=== PATIENT | male | born 1965 | race Caucasian/White ===

== ENCOUNTER 2016-10-24 07:17 | Emergency (ER) | payer BC ==
[~2016-10-24] VITALS: Ht 177.8 cm; Wt 77.3 kg
[~2016-10-24 07:17] MED LIST: CHONCAP PO; OMEGCAP2 PO; TAMS0.4C38 PO
[2016-10-24 07:20] VITALS: TEMP 36.9; Ht 177.8 cm; Wt 77.3 kg
[2016-10-24] MEDS ORDERED: SODIUM CHLORIDE 0.9% 1000ML 1,000 ML IV STA (07:33)
[2016-10-24] MEDS ORDERED: KETOROLAC TROMETHAMINE 30 MG/ML VIAL IV STA (07:33)
[2016-10-24 07:46] LABS: BASO % 0.2 %; BASO ABS # 0.01 K/uL (0-0.2); COMPLETE YES; EOS % 0.2 %; HEMATOCRIT 46.4 % (42-52); IG% 0.2 %; LYMPH % 8.8 %; LYMPH ABS # 0.57 K/uL (1.2-3.4); MEAN CELL VOLUME 90.6 fL (80-100); MEAN CORPUSCULAR HEMOGLOBIN 32.4 pg (25-34); MEAN CORPUSCULAR HGB CONC 35.8 g/dl (32-36); MEAN PLATELET VOLUME 11.9 fL (7.4-10.4); MONO % 9.8 %; NEUT % 80.8 %; PLATELET COUNT 135 K/uL (130-400); RED BLOOD COUNT 5.12 M/uL (4.7-6.1); WHITE BLOOD COUNT 6.45 K/uL (4.8-10.8)
[2016-10-24 08:03] LABS: BUN/CREATININE RATIO 15.9 (10-20); CALCIUM 8.7 mg/dl (8.5-10.1); CREATININE 0.89 mg/dl (0.60-1.40); POTASSIUM 4.1 mmol/L (3.5-5.1)
[2016-10-24] MEDS ORDERED: DOXY100C41 PO (08:28)
--- NOTE | 2016-10-24 09:24 | EMERGENCY ROOM VISIT NOTE ---
History First contact with patient: 07:25 Chief Complaint: PAIN (GENERALIZED) Stated Complaint: BODY ACHE,SHORT History of Present Illness The patient is a 51 year old male who presents to the Emergency Room with complaints of diffuse body aches which started on Thursday. He also has a throbbing headache which she rates at a 3 out of 10. The patient was seen yesterday at [facility] for his current symptoms. The patient states he had laboratory work done as well as a Lyme test done. They started him on doxycycline for a 2 week. While his results are pending. He is to follow with his family doctor. The patient did not have any other laboratory results. The patient is here today because he could not sleep last night due to the diffuse body aches. The patient had a tick in the axilla region which she removed approximately 18 days ago. He denies any rashes. He denies any history of Lyme 's disease. The patient denies any recent cold symptoms or any urinary symptoms. Review of Systems 10 system review was performed and was negative unless stated otherwise history of present illness. Past Medical/Surgical History No significant past medical history Family History Patient reports no known family medical history. Social History Smoking Status: Never Smoker Drug Use: none Marital Status: Housing Status: lives with family Occupation Status: employed Current/Historical Medications Scheduled Chondroitin Sulfate-Vitamin C- (Chondroitin Sulfate), 2 CAP PO DAILY Doxycycline (Monohydrate) (Monodox), 1 CAP PO BID [place]-3 Fatty Acids (Fish Oil), 2 CAP PO DAILY Tamsulosin Hcl (Flomax), 0.4 MG PO DAILY Allergies Coded Allergies: No Known Allergies (Verified , 10/24/16) Physical Exam Vital Signs Date Time Temp Pulse Resp B/P Pulse Ox O2 Delivery O2 Flow Rate FiO2 10/24/16 07:20 36.9 82 20 128/83 97 Room Air Pain Rating (0-10): 3.0 Physical Exam GENERAL: 51-year-old white male appears in no acute distress. MENTAL Status: Alert and oriented 3. EYES: PERRLA. EOMs intact.. EARS: Canals clear. TMs without fluid level noted. NOSE: Nasal mucosa without erythema or engorgement. PHARYNX: No erythema or edema noted. Airway is intact adequate NECK: Supple, no lymphadenopathy noted. No carotid bruits noted. LUNGS: Clear auscultation without wheezes rales or rhonchi. CARDIAC: Regular rate and rhythm without murmur. Pulses is full and equal throughout. ABDOMEN: Positive bowel sounds all 4 quadrants. Soft, nontender to palpation without organomegaly or masses. MUSCULOSKELETAL: Full range of motion of all joints. No erythema or edema noted of the joints. Medical Decision & Procedures Laboratory Results 10/24/16 07:36 Red Blood Count 5.12, Mean Corpuscular Volume 90.6, Mean Corpuscular Hemoglobin 32.4, Mean Corpuscular Hemoglobin Concent 35.8, Mean Platelet Volume 11.9, Neutrophils (%) (Auto) 80.8, Lymphocytes (%) (Auto) 8.8, Monocytes (%) (Auto) 9.8, Eosinophils (%) (Auto) 0.2, Basophils (%) (Auto) 0.2, Neutrophils # (Auto) 5.22, Lymphocytes # (Auto) 0.57, Monocytes # (Auto) 0.63, Eosinophils # (Auto) 0.01, Basophils # (Auto) 0.01 10/24/16 07:36 Test 10/24/16 07:36 White Blood Count 6.45 K/uL (4.8-10.8) Red Blood Count 5.12 M/uL (4.7-6.1) Hemoglobin 16.6 g/dL (14.0-18.0) Hematocrit 46.4 % (42-52) Mean Corpuscular Volume 90.6 fL (80-100) Mean Corpuscular Hemoglobin 32.4 pg (25-34) Mean Corpuscular Hemoglobin Concent 35.8 g/dl (32-36) Platelet Count 135 K/uL (130-400) Mean Platelet Volume 11.9 fL (7.4-10.4) Neutrophils (%) (Auto) 80.8 % Lymphocytes (%) (Auto) 8.8 % Monocytes (%) (Auto) 9.8 % Eosinophils (%) (Auto) 0.2 % Basophils (%) (Auto) 0.2 % Neutrophils # (Auto) 5.22 K/uL (1.4-6.5) Lymphocytes # (Auto) 0.57 K/uL (1.2-3.4) Monocytes # (Auto) 0.63 K/uL (0.11-0.59) Eosinophils # (Auto) 0.01 K/uL (0-0.5) Basophils # (Auto) 0.01 K/uL (0-0.2) RDW Standard Deviation 42.1 fL (36.4-46.3) RDW Coefficient of Variation 12.6 % (11.5-14.5) Immature Granulocyte % (Auto) 0.2 % Immature Granulocyte # (Auto) 0.01 K/uL (0.00-0.02) Erythrocyte Sedimentation Rate 11 mm/hr (0-14) Anion Gap 5.0 mmol/L (3-11) Est Creatinine Clear Calc Drug Dose 100.2 ml/min Estimated GFR () 113.9 Estimated GFR (Non- 98.3 BUN/Creatinine Ratio 15.9 (10-20) Calcium Level 8.7 mg/dl (8.5-10.1) Total Bilirubin 0.5 mg/dl (0.2-1) Direct Bilirubin 0.1 mg/dl (0-0.2) Aspartate Amino Transf (AST/SGOT) 20 U/L (15-37) Alanine Aminotransferase (ALT/SGPT) 24 U/L (12-78) Alkaline Phosphatase 57 U/L (45-117) Total Creatine Kinase 81 U/L (39-308) Total Protein 7.1 gm/dl (6.4-8.2) Albumin 3.6 gm/dl (3.4-5.0) Lipase 161 U/L (73-393) Influenza Type A Antigen Neg for Influ A (NEG) Influenza Type B Antigen Neg for Influ B (NEG) Medications Administered Medications (Trade) Dose Ordered Sig/Yuri Route Start Time Stop Time Status Last Admin Dose Admin Sodium Chloride (Nss 1000ml) 1,000 ml @ 999 mls/hr Q1H1M STAT IV 10/24/16 07:33 10/24/16 08:33 DC 10/24/16 07:33 999 MLS/HR Ketorolac Tromethamine (Toradol Inj) 30 mg NOW STAT IV 10/24/16 07:33 10/24/16 07:36 DC 10/24/16 07:42 30 MG ED Course The patient was evaluated. The patient's EMR and medication list were reviewed. I obtained the records from [facility] from yesterday. Labs were unremarkable and Lyme titer is pending. It did state that they placed the patient on doxycycline and he was to follow with his family physician. IV access was obtained. CBC and differential, metabolic profile, CPK, sedimentation rate was ordered. The patient was given Toradol 30 mg IV for headache and body aches. Labs are reviewed and were unremarkable. Influenza was negative for influenza A and influenza B. The patient was informed of all findings and discharged home in stable condition. Medical Decision Differential diagnosis include rhabdomyolysis, influenza, viral illness, Lyme's disease, rheumatoid disease Impression Primary Impression: Body aches Departure Information Dispostion Home / Self-Care Condition GOOD Referrals Ismael Walton D.O. (PCP) Forms HOME CARE DOCUMENTATION FORM, IMPORTANT VISIT INFORMATION, WORK / SCHOOL INSTRUCTIONS Patient Instructions My [facility] Additional Instructions Continue doxycycline as prescribed. Ibuprofen and/or Tylenol as needed for body aches. Push fluids, rest. Follow-up with family doctor for recheck and further evaluation if necessary.
[2016-10-24 09:40] VITALS: BP 125/74; PULSE 62; O2SAT 96
== END 2016-10-24 09:43 | disposition home or self-care (01) ==
LOC: C.EDB 07:18 → C.EDA 09:43
DX: M79.1 Myalgia (principal); R51 Headache; Z79.899 Other long term (current) drug therapy